=== PATIENT | male | born 1960 | race Caucasian/White ===

== ENCOUNTER 2020-06-17 13:22 | Emergency (ER) | payer MEDICARE, MEDICAID ==
[~2020-06-17] VITALS: Ht 190.5 cm; Wt 119.5 kg
[2020-06-17] MEDS ORDERED: normal saline 1000ML IV soln IVB ONE (14:55)
[2020-06-17 14:59] LABS: BASOPHILS % (AUTO) 0.5 % (0-1); EOSINOPHILS # (AUTO) 0.1 X10'3 (0-0.9); EOSINOPHILS % (AUTO) 1.6 % (0-6); HEMOGLOBIN 12.8 g/dl (14.0-17.9); LYMPHOCYTES # (AUTO) 1.2 X10'3 (1.1-4.8); MEAN CORPUSCULAR HEMOGLOBIN 29.5 PG (27.0-31.0); MEAN CORPUSCULAR HGB CONC 33.8 g/dL (33.0-36.5); MEAN CORPUSCULAR VOLUME 87.4 FL (78-98); MONOCYTES # (AUTO) 0.5 X10'3 (0-0.9); MONOCYTES % (AUTO) 6.3 % (2-12); NEUTROPHILS # (AUTO) 6.7 X10'3 (1.8-7.7); NEUTROPHILS % (AUTO) 77.6 % (42-75); PLATELET COUNT 147 X10'3 (140-440); RED BLOOD COUNT 4.35 X10'6 (4.70-6.10); RED CELL DISTRIBUTION WIDTH 13.8 % (11.5-14.5); WHITE BLOOD COUNT 8.6 X10'3 (4.5-11.0)
[2020-06-17 15:13] LABS: PARTIAL THROMBOPLASTIN TIME 25 SECONDS (22-32)
[2020-06-17 15:17] LABS: ALANINE AMINOTRANSFERASE 21 U/L (12-78); ALBUMIN 3.8 G/DL (3.4-5.0); ALBUMIN/GLOBULIN RATIO 1.1 (1.1-1.5); ALKALINE PHOSPHATASE 57 IU/L (46-116); ANION GAP 8 (8-16); ASPARTATE AMINO TRANSFERASE 8 U/L (10-37); BILIRUBIN,TOTAL 0.4 MG/DL (0.1-1.0); BLOOD UREA NITROGEN 27 MG/DL (7-18); BUN/CREATININE RATIO 18.8 (5.4-32.0); CALCIUM 9.5 MG/DL (8.5-10.1); CHLORIDE 105 MMOL/L (99-107); CREATININE 1.44 MG/DL (0.60-1.10); GLUCOSE 177 MG/DL (70-104); POTASSIUM 4.2 MMOL/L (3.5-5.1); SODIUM 140 MMOL/L (135-145); TOTAL CARBON DIOXIDE 26.8 MMOL/L (24-32); TOTAL PROTEIN 7.2 G/DL (6.4-8.2); eGFR 50 ML/MIN
[2020-06-17 15:19] LABS: TROPONIN I < 0.04 NG/ML (0.0-0.05)
[2020-06-17 17:40] VITALS: BP 145/65
== END 2020-06-17 17:41 | disposition home or self-care (01) ==
LOC: ER 13:22
DX: R01.1 Cardiac murmur, unspecified (principal); R00.1 Bradycardia, unspecified; R61 Generalized hyperhidrosis; I50.22 Chronic systolic (congestive) heart failure
CPT/HCPCS: 36415; 70450; 71045; 80053; 82948; 84484; 85025; 85610; 85730; 93005; 99285; J7030

== ENCOUNTER 2022-12-15 09:50 | Day surgery (SDC) | payer MEDICARE, MEDICAID ==
[2022-12-14 14:04] LABS: BASOPHILS # (AUTO) 0.1 X10'3 (0-0.2); BASOPHILS % (AUTO) 0.9 % (0-1); EOSINOPHILS # (AUTO) 0.2 X10'3 (0-0.9); HEMATOCRIT 39.8 % (42.0-52.0); HEMOGLOBIN 13.6 g/dl (14.0-17.9); LYMPHOCYTES # (AUTO) 1.7 X10'3 (1.1-4.8); LYMPHOCYTES % (AUTO) 21.4 % (21-51); MEAN CORPUSCULAR HEMOGLOBIN 29.7 PG (27.0-31.0); MEAN CORPUSCULAR HGB CONC 34.1 g/dL (33.0-36.5); MEAN CORPUSCULAR VOLUME 87.3 FL (78-98); MEAN PLATELET VOLUME 9.2 FL (7.4-10.4); MONOCYTES # (AUTO) 0.7 X10'3 (0-0.9); MONOCYTES % (AUTO) 8.7 % (2-12); NEUTROPHILS # (AUTO) 5.4 X10'3 (1.8-7.7); PLATELET COUNT 152 X10'3 (140-440); RED BLOOD COUNT 4.56 X10'6 (4.70-6.10); RED CELL DISTRIBUTION WIDTH 13.1 % (11.5-14.5); WHITE BLOOD COUNT 8.1 X10'3 (4.5-11.0)
[2022-12-14 14:07] LABS: APTT 28 SECONDS (22-32)
[2022-12-14 14:09] LABS: ALBUMIN 3.9 G/DL (3.4-5.0); ANION GAP 6 (8-16); BLOOD UREA NITROGEN 31 MG/DL (7-18); BUN/CREATININE RATIO 20.4 (10.0-20.0); CALCIUM 8.8 MG/DL (8.5-10.1); CHLORIDE 103 MMOL/L (99-107); CHOL/HDL RATIO 2.4 (0.00-4.99); CHOLESTEROL 77 MG/DL (0-200); CREATININE 1.52 MG/DL (0.60-1.10); GLUCOSE 174 MG/DL (70-104); HDL CHOLESTEROL 32 MG/DL (35-60); LDL CHOLESTEROL 29 MG/DL (50-100); POTASSIUM 3.9 MMOL/L (3.5-5.1); SODIUM 138 MMOL/L (135-145); TOTAL CARBON DIOXIDE 29.1 MMOL/L (24-32); TRIGLYCERIDES 76 MG/DL (20-135); eGFR 47 ML/MIN
[~2022-12-15] VITALS: Ht 190.5 cm; Wt 115.3 kg
[2022-12-15] VITALS (11 sets, daily range): BP systolic 141–192; BP diastolic 60–107; PULSE 45–87; RESP 14–18; TEMP 98; O2SAT 93–96
[2022-12-15] MEDS ORDERED: LORazepam 0.5 MG tablet PO PRN (10:05)
[2022-12-15] MEDS ORDERED: normal saline 1,000 ML IV SCH (10:05)
[2022-12-15] MEDS ORDERED: acetylcysteine 200 MG/ml 4ml vial PO PRN (10:05)
[2022-12-15] MEDS ORDERED: diphenhydrAMINE 25mg capsule PO PRN (10:05)
[2022-12-15] MEDS ORDERED: sodium bicarbonate 1meq/ml syr 150 ML in dextrose 5%-water 1,000 ML IV SCH ×2 (10:20→13:00)
[2022-12-15] MEDS ORDERED: nitroGLYCERIN-Tridil 50MG/D5W 250 ML IV ONE (10:53)
[2022-12-15] MEDS ORDERED: verapamil 2.5 mg/ml inj IV ONE (10:53)
[2022-12-15] MEDS ORDERED: LIDOcaine 1% (10mg/ml) 2ml vial ONE (10:53)
[2022-12-15] MEDS ORDERED: fentaNYL/PF 50MCG/1 ML 2ML syringe ONE (10:54)
[2022-12-15] MEDS ORDERED: midazolam 1 mg/ML 2ml injection ONE (10:54)
[2022-12-15] MEDS ORDERED: iohexol 350MG/ML 100ml bottle IV ONE ×2 (10:54→11:36)
[2022-12-15] MEDS ORDERED: heparin 1,000unit/ml 10ml vial 10 ML ONE (10:54)
[2022-12-15] MEDS ORDERED: iohexol 350 MG/ML 50ML vial IV ONE (10:54)
[2022-12-15] MEDS ORDERED: OMEG100037 PO (11:07)
[2022-12-15] MEDS ORDERED: HYDR100T27 PO (11:07)
[2022-12-15] MEDS ORDERED: CLON0.1T2 PO ×2 (11:07)
[2022-12-15] MEDS ORDERED: ROSU40TA22 PO (11:07)
[2022-12-15] MEDS ORDERED: LISI40TA13 PO (11:07)
[2022-12-15] MEDS ORDERED: METF-438 PO (11:07)
[2022-12-15 11:21] LABS: CHOLESTEROL 76 MG/DL (0-200); LDL CHOLESTEROL 30 MG/DL (50-100); TRIGLYCERIDES 77 MG/DL (20-135)
[2022-12-15 11:31] LABS: CHOL/HDL RATIO 2.5 (0.00-4.99); HDL CHOLESTEROL 31 MG/DL (35-60)
[2022-12-15] MEDS ORDERED: hydrALAZINE 20mg/ml inj. IV ONE (11:55)
[2022-12-15] MEDS ORDERED: diltiazem 5mg/ml 5ml inj. IV ONE (12:19)
[2022-12-15 12:36] LABS: ISTAT HGB ART 11.9 g/dl (14.0-17.9); ISTAT Hct ART 35 %PCV (42-52); ISTAT O2 SATURATION ARTERIAL 97 % (95-98); ISTAT SOURCE ART
[2022-12-15] MEDS ORDERED: acetylcysteine 200 MG/ml 4ml vial PO ONE ×2 (13:00→17:30)
[2022-12-15] MEDS: cloNIDine 0.1 mg tablet PO ONE ×2 (13:00→17:06)
[2022-12-15] MEDS ORDERED: hydrALAZINE 20mg/ml inj. IV PRN (13:05)
[2022-12-15] MEDS ORDERED: lisinopril 20mg tablet PO ONE (13:10)
[2022-12-15] MEDS ORDERED: hyDRALAzine 10mg tablet PO ONE (13:20)
[2022-12-15] MEDS ORDERED: hydrALAZINE 25 MG tablet PO ONE (13:25)
[2022-12-15 13:28] LABS: ISTAT HGB MIX 11.6 g/dl (14.0-17.9); ISTAT Hct MIX 34 %PCV (42-52); ISTAT O2 SATURATION MIX VENOUS 68 % (60-80); ISTAT SOURCE VEN
== END 2022-12-15 18:10 | disposition home or self-care (01) ==
LOC: SSTAY O 09:50
PROVIDERS: ATTEND Internal Medicine Cardiovascular Disease
DX: I25.10 Atherosclerotic heart disease of native coronary artery without angina pectoris (principal); E11.9 Type 2 diabetes mellitus without complications; I11.0 Hypertensive heart disease with heart failure; I50.22 Chronic systolic (congestive) heart failure; E78.5 Hyperlipidemia, unspecified; J44.9 Chronic obstructive pulmonary disease, unspecified; I42.0 Dilated cardiomyopathy; I71.20 Thoracic aortic aneurysm, without rupture, unspecified; G47.30 Sleep apnea, unspecified; Z79.84 Long term (current) use of oral hypoglycemic drugs; Z79.899 Other long term (current) drug therapy; Z95.2 Presence of prosthetic heart valve; Z98.890 Other specified postprocedural states; Z87.891 Personal history of nicotine dependence; Z72.89 Other problems related to lifestyle
CPT/HCPCS: 36415; 76937; 80048; 80061; 82803; 82948; 85014; 85025; 85610; 85730; 93005; 93460; 93567; 99152; 99153; A6258; J0360; J1644; J2250; J3010; J3490; J7030; J7070; Q0163; Q9967; A6402; C1725; C1751; C1769; C1894